=== PATIENT | male | born 1950 | race African-American/Black ===

== ENCOUNTER 2020-10-13 12:45 | Emergency (ER) | payer MEDICARE ==
[~2020-10-13] VITALS: Ht 182.9 cm; Wt 62.7 kg
[2020-10-13 12:55] VITALS: BP 147/88
--- NOTE | 2020-10-13 13:00 | NUR ---
EKG IN TRIAGE
== END 2020-10-13 13:40 | disposition home or self-care (01) ==
LOC: ED 13:26
DX: M54.5 Low back pain (principal); R94.31 Abnormal electrocardiogram [ECG] [EKG]
CPT/HCPCS: 93005; 99283

== ENCOUNTER → 2020-10-13 | Outpatient (CLI) | payer MEDICARE | END | disposition home or self-care (01) | LOC: RAD 09:40 | PROVIDERS: ATTEND Physician Assistant Medical | DX: I77.819 Aortic ectasia, unspecified site (principal); R31.29 Other microscopic hematuria; N23 Unspecified renal colic | CPT/HCPCS: 76770 ==